=== PATIENT | female | born 1930 | race Caucasian/White ===

== ENCOUNTER 2017-05-14 21:07 | Inpatient (IN) | payer MEDICARE ==
[~2017-05-14] VITALS: Ht 165.1 cm; Wt 54.4 kg
--- NOTE | 2017-05-14 22:28 | NUR ---
THE ONLY MED THAT PT REMEMBERS IS XANAX
[2017-05-14] MEDS ORDERED: IV NORMAL SALINE 1000 ML BAG IV ONE (23:45)
[2017-05-15 00:28] LABS: BASOPHILS % (AUTO) 0.1 % (0.0-2.0); HEMATOCRIT 40.8 % (31.2-41.9); HEMOGLOBIN 13.7 g/dL (10.9-14.3); LYMPHOCYTES # (AUTO) 12.3 K/uL (20.0-40.0); MEAN CORPUSCULAR HEMOGLOBIN 29.7 uug (24.7-32.8); MEAN CORPUSCULAR HGB CONC 34 g/dL (32.3-35.6); MEAN CORPUSCULAR VOLUME 88.5 fL (75.5-95.3); MONOCYTES # (AUTO) 1.3 K/uL (2.0-10.0); MONOCYTES % (AUTO) 2.8 % (0.0-11.0); NEUTROPHILS # (AUTO) 31.9 K/uL (1.8-8.9); NEUTROPHILS % (AUTO) 70.1 % (38.5-71.5); PLATELET COUNT (AUTO) 243 K/uL (179-408); RED BLOOD CELL COUNT(AUTO) 4.61 MIL/uL (3.63-4.92)
[2017-05-15 00:31] LABS: WHITE BLOOD COUNT (AUTO) 45.5 K/uL (3.8-11.8)
[2017-05-15] MEDS ORDERED: VANCOMYCIN IV 1,000 MG in IV DEXTROSE 5% 250 ML IV ONE (00:45)
[2017-05-15] MEDS ORDERED: LEVOFLOXACIN 750 MG/D5W 150 ML PIGGYBACK IV ONE (00:45)
[2017-05-15] MEDS ORDERED: IV NORMAL SALINE 1000 ML BAG IV ONE (00:45)
[2017-05-15 00:48] LABS: CARBON DIOXIDE 24 mmol/L (21-32); CHLORIDE 98 mmol/L (98-107); CREATININE 1.8 mg/dL (0.6-1.3); GLUCOSE 120 mg/dL (74-106); POTASSIUM 4.6 mmol/L (3.5-5.1); UREA NITROGEN, BLOOD 51 mg/dL (7-18)
[2017-05-15 00:54] LABS: ALANINE AMINOTRANSFERASE 18 U/L (14-59); ALKALINE PHOSPHATASE 50 U/L (50-136); ASPARTATE AMINOTRANSFERASE 15 U/L (15-37); BILIRUBIN,DIRECT 0.2 mg/dL (0.0-0.2); BILIRUBIN,TOTAL 0.6 mg/dL (0.2-1.0); LIPASE 140 U/L (73-393); TOTAL PROTEIN, SERUM 7.6 g/dL (6.4-8.2)
[2017-05-15 01:01] LABS: BAND % (MANUAL) 4 % (0-10); LYMPHOCYTES % (MANUAL) 21 % (20-40); MONOCYTES % (MANUAL) 4 % (2-10); NEUTROPHILS % (MANUAL) 71 % (42-75)
[2017-05-15] MEDS ORDERED: LEVOFLOXACIN 750MG/D5W 150 ML IV ONE (01:04)
[2017-05-15] MEDS ORDERED: VANCOMYCIN IV 200 ML ONE (03:57)
[2017-05-15 04:24] LABS: *BILIRUBIN,URIN NEGATIVE (NEGATIVE); *BLOOD, URINE 2+ (NEGATIVE); *COLOR,URINE YELLOW (YELLOW); *KETONES,URINE NEGATIVE (NEGATIVE); *PROTEIN,URINE 2+ (NEGATIVE); *UROBILINOGEN,URINE 0.2 E.U./dl (NORMAL); LEUKOCYTE ESTERASE ,URINE 2+ (NEGATIVE); NITRITE, URINE NEGATIVE (NEGATIVE); UGLUCOSE NEGATIVE (NEGATIVE)
[2017-05-15 04:50] LABS: *CLARITY,URINE HAZY (CLEAR)
[2017-05-15 04:56] LABS: BACTERIA,URINE MANY /HPF (NONE SEEN); RBC,URINE 20-50 /HPF (0-3); SQUAMOUS EPITHELIAL CELL,UR MODERATE /HPF (NONE SEEN); WBC,URINE 20-50 /HPF (0-3)
[2017-05-15] MEDS ORDERED: ONDANSETRON IV *ER 4 MG/2 ML VIAL IV ONE (06:45)
--- NOTE | 2017-05-15 07:09 | NUR ---
Mitering Machine Operator assumes care. Patient is asking for phone assistance & pending telemetry bed at this time.
[2017-05-15] MEDS ORDERED: ONDANSETRON 4 MG/2 ML VIAL ONE (07:29)
--- NOTE | 2017-05-15 07:29 | NUR ---
Hands off report received from BERNY Trivedi. Patient is awake, alert, respiration :easy. COMFORT & SAFETY MEASURES MAINTAINED. Patient was assisted to telephone calls 5x since initial contact,
--- NOTE | 2017-05-15 08:26 | NUR ---
q 30 min nurse checks or even more frequent nurse visits were observed. Patient wanted anti-anxiety medicine, [facility] hospitalist was paged. Dr Cartagena notified.
[2017-05-15] MEDS ORDERED: LORAZEPAM 0.5 MG TABLET PO ONE (08:45)
[2017-05-15] MEDS ORDERED: LORAZEPAM 0.5 MG TABLET ONE (08:49)
--- NOTE | 2017-05-15 09:02 | NUR ---
Patient's son is at bedside.
[2017-05-15] MEDS ORDERED: POTA-88 PO (09:16)
[2017-05-15] MEDS ORDERED: SERT100T12 PO (09:16)
[2017-05-15] MEDS ORDERED: CALC-811 PO (09:16)
[2017-05-15] MEDS ORDERED: FURO40TA5 PO (09:20)
[2017-05-15] MEDS ORDERED: MULT1TAB73 PO (09:20)
[2017-05-15] MEDS ORDERED: FERR-58 PO (09:20)
[2017-05-15] MEDS ORDERED: ASPI81TA31 PO (09:22)
[2017-05-15] MEDS ORDERED: DOCU100C36 PO (09:22)
[2017-05-15] MEDS ORDERED: AMLO5TAB2 PO (09:22)
[2017-05-15] MEDS ORDERED: CARB1TAB21 PO (09:24)
[2017-05-15] MEDS ORDERED: HYDR-4075 PO (09:24)
[2017-05-15] MEDS ORDERED: TAMS0.4C34 PO (09:24)
[2017-05-15] MEDS ORDERED: LEVO500T2 PO (09:28)
[2017-05-15] MEDS ORDERED: IPRA42SP IH (09:28)
[2017-05-15] MEDS ORDERED: BETH10TA PO (09:28)
[2017-05-15] MEDS ORDERED: ALPR0.255 PO (09:32)
[2017-05-15] MEDS ORDERED: NYST15CR TOP (09:32)
[2017-05-15] MEDS ORDERED: TRAM50TA2 PO (09:32)
--- NOTE | 2017-05-15 09:38 | NUR ---
Patient is now sleeping comfortably on gurney with eyes closed, calm & beathing easily.
--- NOTE | 2017-05-15 10:30 | NUR ---
HAND CANDY DIPPER is here our ER dept & "OK to send pt to 2nd floor." per HAND CANDY DIPPER.
--- NOTE | 2017-05-15 11:17 | NUR ---
recieved patient from RE , oriented to room, made comfortable. verbalized nausea, no emesis. will follow up with orders. Addendum: 05/15/17 at 1128 by GARTH NIEVES RN not RE but ER.
[2017-05-15 11:20] VITALS: BP 109/60
--- NOTE | 2017-05-15 12:00 | NUR ---
multiple decu see nursing assessment, pictures taken, placed in md progress notes
[2017-05-15] MEDS ORDERED: MEROPENEM 1 G in IV NORMAL SALINE 100 ML IV SCH (14:00)
[2017-05-15] MEDS: ALPRAZOLAM 0.25 MG TABLET PO SCH ×2 (14:40→21:05)
--- NOTE | 2017-05-15 15:00 | NUR ---
prn agitation , able to calm down, monitored for safety and fall risk
[2017-05-15 15:30] VITALS: BP 110/60
[2017-05-15] MEDS ORDERED: POTASSIUM CHLORIDE 20 MEQ TAB.PRT.SR PO SCH (16:00)
[2017-05-15] MEDS: IV NS 1000 ML 1,000 ML IV PRN (16:28)
[2017-05-15] MEDS: MEROPENEM 500 MG in IV NORMAL SALINE 50 ML IV SCH (16:29)
[2017-05-15] MEDS: hydrALAZINE HCL 10 MG TABLET PO SCH (17:30)
[2017-05-15] MEDS: TRAMADOL HCL 50 MG TABLET PO SCH (17:31)
[2017-05-15] MEDS: CARBIDOPA/LEVODOPA 25-100MG TABLET PO SCH (17:31)
[2017-05-15] MEDS ORDERED: TRAMADOL HCL 50 MG TABLET PO SCH (18:00)
--- NOTE | 2017-05-15 18:38 | NUR ---
removed left knee brace for skin protection and safety per protocol
[2017-05-15] MEDS: NYSTATIN CREAM 30 GM TUBE TOP SCH (19:00)
--- NOTE | 2017-05-15 19:00 | NUR ---
on bed, resting ., getting better cooperative after xanax use. good preicare provided.
[2017-05-15 20:54] VITALS: BP 105/61
[2017-05-16] MEDS: TRAMADOL HCL 50 MG TABLET PO SCH ×5 (00:35→23:12)
[2017-05-16 00:43] VITALS: BP 118/66
[2017-05-16] MEDS: MEROPENEM 500 MG in IV NORMAL SALINE 50 ML IV SCH ×2 (03:31→16:52)
[2017-05-16 05:46] VITALS: BP 121/60
[2017-05-16] MEDS: ALPRAZOLAM 0.25 MG TABLET PO SCH ×3 (06:47→21:02)
[2017-05-16 06:48] LABS: BASOPHILS % (AUTO) 0.1 % (0.0-2.0); EOSINOPHILS # (AUTO) 0.2 K/uL (0.0-0.7); EOSINOPHILS % (AUTO) 0.9 % (0.0-7.0); HEMATOCRIT 36.6 % (31.2-41.9); HEMOGLOBIN 11.8 g/dL (10.9-14.3); LYMPHOCYTES # (AUTO) 9.4 K/uL (20.0-40.0); MEAN CORPUSCULAR HEMOGLOBIN 28.7 uug (24.7-32.8); MEAN CORPUSCULAR HGB CONC 32 g/dL (32.3-35.6); MEAN CORPUSCULAR VOLUME 89.4 fL (75.5-95.3); MONOCYTES # (AUTO) 1.1 K/uL (2.0-10.0); MONOCYTES % (AUTO) 4.1 % (0.0-11.0); NEUTROPHILS # (AUTO) 15.4 K/uL (1.8-8.9); NEUTROPHILS % (AUTO) 58.9 % (38.5-71.5); PLATELET COUNT (AUTO) 206 K/uL (179-408); WHITE BLOOD COUNT (AUTO) 26.2 K/uL (3.8-11.8)
[2017-05-16 07:17] LABS: ALANINE AMINOTRANSFERASE 11 U/L (14-59); ALKALINE PHOSPHATASE 38 U/L (50-136); ASPARTATE AMINOTRANSFERASE 19 U/L (15-37); BILIRUBIN,TOTAL 0.5 mg/dL (0.2-1.0); CARBON DIOXIDE 24 mmol/L (21-32); CHLORIDE 105 mmol/L (98-107); CREATINE KINASE, TOTAL 52 U/L (26-192); CREATININE 1.3 mg/dL (0.6-1.3); GLUCOSE 75 mg/dL (74-106); MAGNESIUM 2.5 mg/dL (1.8-2.4); PHOSPHOROUS 3.1 mg/dL (2.5-4.9); POTASSIUM 3.6 mmol/L (3.5-5.1); TOTAL PROTEIN, SERUM 6.1 g/dL (6.4-8.2); UREA NITROGEN, BLOOD 35 mg/dL (7-18)
--- NOTE | 2017-05-16 07:30 | NUR ---
on bed, sleeping comfortably. no distress noted Addendum: 05/16/17 at 1837 by GARTH NIEVES RN left leg brace in place. Addendum: 05/16/17 at 1838 by GARTH NIEVES RN removed brace prn for skin care, protection
[2017-05-16] MEDS: CALCIUM CARB/VITAMIN D 500MG-200UNITS TABLET PO SCH (09:14)
[2017-05-16] MEDS: DOCUSATE SODIUM 100 MG CAPSULE PO SCH (09:14)
[2017-05-16] MEDS: CARBIDOPA/LEVODOPA 25-100MG TABLET PO SCH ×3 (09:14→17:32)
[2017-05-16] MEDS: MULTIVITAMINS,THERAPEUTIC TABLET PO SCH (09:15)
[2017-05-16] MEDS: POTASSIUM CHLORIDE 20 MEQ TAB.PRT.SR PO SCH (09:15)
[2017-05-16] MEDS: FUROSEMIDE 40 MG TABLET PO SCH (09:15)
[2017-05-16] MEDS: TAMSULOSIN HCL 0.4 MG CAP.SR.24H PO SCH (09:16)
[2017-05-16] MEDS: BETHANECHOL CHLORIDE 10 MG TABLET PO SCH (09:16)
[2017-05-16] MEDS: AMLODIPINE 5 MG TABLET PO SCH (09:16)
[2017-05-16] MEDS: hydrALAZINE HCL 10 MG TABLET PO SCH ×2 (09:16→17:00)
[2017-05-16] MEDS: SERTRALINE HCL 100 MG TABLET PO SCH (09:16)
[2017-05-16] MEDS: ASPIRIN 81 MG TAB.CHEW PO SCH (09:17)
[2017-05-16 11:46] VITALS: BP 130/60
[2017-05-16] MEDS: FERROUS SULFATE 325 MG TABEC PO SCH (12:00)
--- NOTE | 2017-05-16 12:00 | NUR ---
resting well. denies distress
[2017-05-16] MEDS: NYSTATIN CREAM 30 GM TUBE TOP SCH ×3 (13:54→17:33)
--- NOTE | 2017-05-16 14:00 | NUR ---
oob th chair, tolerated fair. back to bed in 30 minutes.
[2017-05-16] MEDS: IV NS 1000 ML 1,000 ML IV PRN (15:23)
[2017-05-16] MEDS ORDERED: ENOXAPARIN SODIUM 40 MG/0.4 ML DISP.SYRIN SQ SCH (15:45)
[2017-05-16 15:49] VITALS: BP 103/58
[2017-05-16] MEDS: IPRATROPIUM BROMIDE NASAL 15 ML BOTTLE 42 MCG/SPRAY NS SCH (18:19)
--- NOTE | 2017-05-16 18:32 | NUR ---
less anxious , cooperative, cont prn forgetfulness. eating more today than yesterday, taking fluids fair, encouraged
[2017-05-16 20:00] VITALS: BP 112/65
[2017-05-16 20:42] VITALS: BP 112/65
[2017-05-16] MEDS: ENOXAPARIN SODIUM 30 MG/0.3 ML DISP.SYRIN SUBCUT SCH (21:03)
[2017-05-17 00:17] VITALS: BP 108/52
[2017-05-17 04:00] VITALS: BP 115/62
[2017-05-17 05:00] VITALS: BP 115/62
[2017-05-17] MEDS: MEROPENEM 500 MG in IV NORMAL SALINE 50 ML IV SCH ×2 (05:08→16:03)
[2017-05-17] MEDS: IV NS 1000 ML 1,000 ML IV PRN (05:09)
--- NOTE | 2017-05-17 05:12 | NUR ---
NURSING CLINICAL NOTE: Pt is requesting to take the morning dose of xanax and tramadol with breakfast.
[2017-05-17 06:52] LABS: CARBON DIOXIDE 24 mmol/L (21-32); CHLORIDE 109 mmol/L (98-107); CREATININE 1.2 mg/dL (0.6-1.3); GLUCOSE 77 mg/dL (74-106); MAGNESIUM 2.1 mg/dL (1.8-2.4); PHOSPHOROUS 2.8 mg/dL (2.5-4.9); POTASSIUM 3.5 mmol/L (3.5-5.1); UREA NITROGEN, BLOOD 29 mg/dL (7-18)
[2017-05-17 07:06] LABS: BASOPHILS % (AUTO) 0.1 % (0.0-2.0); EOSINOPHILS # (AUTO) 0.3 K/uL (0.0-0.7); EOSINOPHILS % (AUTO) 1.5 % (0.0-7.0); HEMATOCRIT 35.7 % (31.2-41.9); HEMOGLOBIN 11.6 g/dL (10.9-14.3); LYMPHOCYTES % (AUTO) 45.8 % (20.5-51.5); MEAN CORPUSCULAR HEMOGLOBIN 29.1 uug (24.7-32.8); MEAN CORPUSCULAR HGB CONC 33 g/dL (32.3-35.6); MEAN CORPUSCULAR VOLUME 89.6 fL (75.5-95.3); MONOCYTES # (AUTO) 0.8 K/uL (2.0-10.0); MONOCYTES % (AUTO) 4.1 % (0.0-11.0); NEUTROPHILS # (AUTO) 9.6 K/uL (1.8-8.9); NEUTROPHILS % (AUTO) 48.5 % (38.5-71.5); PLATELET COUNT (AUTO) 193 K/uL (179-408); RED BLOOD CELL COUNT(AUTO) 3.98 MIL/uL (3.63-4.92); WHITE BLOOD COUNT (AUTO) 19.7 K/uL (3.8-11.8)
[2017-05-17] MEDS: ASPIRIN 81 MG TAB.CHEW PO SCH (08:15)
[2017-05-17] MEDS: DOCUSATE SODIUM 100 MG CAPSULE PO SCH (08:15)
[2017-05-17] MEDS: TAMSULOSIN HCL 0.4 MG CAP.SR.24H PO SCH (08:15)
[2017-05-17] MEDS: CARBIDOPA/LEVODOPA 25-100MG TABLET PO SCH ×3 (08:16→16:03)
[2017-05-17] MEDS: CALCIUM CARB/VITAMIN D 500MG-200UNITS TABLET PO SCH (08:17)
[2017-05-17] MEDS: ALPRAZOLAM 0.25 MG TABLET PO SCH ×3 (08:17→21:42)
[2017-05-17] MEDS: FUROSEMIDE 40 MG TABLET PO SCH (08:17)
[2017-05-17] MEDS: TRAMADOL HCL 50 MG TABLET PO SCH ×4 (08:17→23:02)
[2017-05-17] MEDS: POTASSIUM CHLORIDE 20 MEQ TAB.PRT.SR PO SCH (08:19)
[2017-05-17] MEDS: SERTRALINE HCL 100 MG TABLET PO SCH (08:19)
[2017-05-17] MEDS: MULTIVITAMINS,THERAPEUTIC TABLET PO SCH (08:19)
[2017-05-17] MEDS: BETHANECHOL CHLORIDE 10 MG TABLET PO SCH (08:24)
[2017-05-17] MEDS: hydrALAZINE HCL 10 MG TABLET PO SCH ×2 (08:25→16:02)
[2017-05-17] MEDS: AMLODIPINE 5 MG TABLET PO SCH (08:25)
[2017-05-17] MEDS: NYSTATIN CREAM 30 GM TUBE TOP SCH ×3 (08:26→16:05)
[2017-05-17] MEDS: IPRATROPIUM BROMIDE NASAL 15 ML BOTTLE 42 MCG/SPRAY NS SCH (09:43)
[2017-05-17 11:18] VITALS: BP 105/59
[2017-05-17] MEDS: FERROUS SULFATE 325 MG TABEC PO SCH (11:52)
[2017-05-17 15:05] VITALS: BP 111/63
--- NOTE | 2017-05-17 18:48 | NUR ---
PT OBSERVED RESTING IN ROOM. THROUGH OUT THE DAY PT HAS BEEN ANXIOUS /. PT WAS TAUGHT BREATHING TECHNIQUES, AND DISTRACTION. HER ANXIETY 07/17 TEACHING WAS EFFECTIVE. AOX2 NEEDS REORIENTATION AND REMINDING.
[2017-05-17 20:00] VITALS: BP 120/60
--- NOTE | 2017-05-17 20:00 | NUR ---
RECEIVED PT AWAKE IN BED, SHE'S ALERT WITH CONFUSION AND EASILY GETS ANXIOUS. SHE DENIES PAIN OR DISCOMFORT AT THIS TIME. SHE'S ON TELE WITH A-FIB RHYTHM AT 63. ALL SAFETY MEASURES IN PLACE, CALL LIGHT WITHIN PT'S REACH. WILL CONTINUE TO MONITOR PT
[2017-05-17] MEDS: ENOXAPARIN SODIUM 30 MG/0.3 ML DISP.SYRIN SUBCUT SCH (21:41)
--- NOTE | 2017-05-18 | NUR ---
PT IS ASLEEP WITH NO S/S OF PAIN OR DISTRESS, NO SIGNIFICANT CHANGES IN STATUS AT PRESENT. WILL CONTINUE TO MONITOR PT
[2017-05-18 00:29] VITALS: BP 100/60
[2017-05-18] MEDS: MEROPENEM 500 MG in IV NORMAL SALINE 50 ML IV SCH ×2 (03:48→17:53)
[2017-05-18 05:24] VITALS: BP 129/67
[2017-05-18] MEDS: TRAMADOL HCL 50 MG TABLET PO SCH ×4 (05:46→22:48)
[2017-05-18] MEDS: ALPRAZOLAM 0.25 MG TABLET PO SCH ×3 (05:46→18:11)
[2017-05-18] MEDS: IV NS 1000 ML 1,000 ML IV PRN ×2 (05:49→23:02)
--- NOTE | 2017-05-18 06:50 | NUR ---
PT CONTINUES TO SLEEP ON AND OFF WITH NO S/S OF DISTRESS OR DISCOMFORT. NO FURTHER CHANGES, ALL NEEDS MET AND ANTICIPATED
[2017-05-18] MEDS: IPRATROPIUM BROMIDE NASAL 15 ML BOTTLE 42 MCG/SPRAY NS SCH (09:56)
[2017-05-18] MEDS: NYSTATIN CREAM 30 GM TUBE TOP SCH ×3 (09:56→18:07)
[2017-05-18] MEDS: ASPIRIN 81 MG TAB.CHEW PO SCH (09:56)
[2017-05-18] MEDS: TAMSULOSIN HCL 0.4 MG CAP.SR.24H PO SCH (09:56)
[2017-05-18] MEDS: hydrALAZINE HCL 10 MG TABLET PO SCH ×2 (09:56→18:10)
[2017-05-18] MEDS: CARBIDOPA/LEVODOPA 25-100MG TABLET PO SCH ×3 (09:57→18:45)
[2017-05-18] MEDS: CALCIUM CARB/VITAMIN D 500MG-200UNITS TABLET PO SCH (09:57)
[2017-05-18] MEDS: AMLODIPINE 5 MG TABLET PO SCH (09:57)
[2017-05-18] MEDS: POTASSIUM CHLORIDE 20 MEQ TAB.PRT.SR PO SCH (09:57)
[2017-05-18] MEDS: MULTIVITAMINS,THERAPEUTIC TABLET PO SCH (09:57)
[2017-05-18] MEDS: FUROSEMIDE 40 MG TABLET PO SCH (09:57)
[2017-05-18] MEDS: BETHANECHOL CHLORIDE 10 MG TABLET PO SCH (10:17)
[2017-05-18] MEDS: SERTRALINE HCL 100 MG TABLET PO SCH (10:50)
[2017-05-18] MEDS: DOCUSATE SODIUM 100 MG CAPSULE PO SCH (10:51)
[2017-05-18 11:13] VITALS: BP 108/61
[2017-05-18] MEDS: FERROUS SULFATE 325 MG TABEC PO SCH (12:45)
[2017-05-18 15:27] VITALS: BP 107/56
--- NOTE | 2017-05-18 19:25 | NUR ---
PT RECEIVED IN BED, AWAKE. A/OX2. ABLE TO MAKE NEEDS KNOWN. V/S STABLE. IN NO ACUTE DISTRESS. NO C/O PAIN AT THIS TIME. IVF INFUSING. ON RA TOLERATING WELL.AFEBRILE. OFFLOADING SACRAL AREA. SAFETY MEASURES IMPLEMENTED. BED ALARM SET. CALL LIGHT WITHIN REACH.
[2017-05-18 20:42] VITALS: BP_SYST 102; BP_SYST 111; BP_DIAS 53; BP_DIAS 61
[2017-05-18] MEDS: ENOXAPARIN SODIUM 30 MG/0.3 ML DISP.SYRIN SUBCUT SCH ×2 (21:00→22:47)
[2017-05-18 22:15] VITALS: BP 172/79
--- NOTE | 2017-05-18 22:45 | NUR ---
PT C/O SACRAL PAIN 02/16. ADMINISTERED ULTRAM ORDERED. PT REFUSED LOVENOX. PT STATES ALREADY RECEIVING LOVENOX BEFORE DINNER AND DOES NOT WANT IT AT THIS TIME.
[2017-05-19] MEDS: MEROPENEM 500 MG in IV NORMAL SALINE 50 ML IV SCH (04:35)
[2017-05-19 04:43] VITALS: BP 136/59
[2017-05-19] MEDS: ALPRAZOLAM 0.25 MG TABLET PO SCH ×2 (05:06→13:10)
[2017-05-19] MEDS: TRAMADOL HCL 50 MG TABLET PO SCH ×2 (05:06→12:10)
--- NOTE | 2017-05-19 07:14 | NUR ---
END OF SHIFT NOTES. PT SLEPT INTERMITTENTLY THROUGHOUT SHIFT. IN STABLE CONDITION. PAIN MANAGED. IV ABX INFUSED AND IVF INFUSING. OFFLOADING PROVIDED TO [facility]. ALL NEEDS ATTENDED. SAFETY MAINTAINED. CALL LIGHT WITHIN REACH.
[2017-05-19] MEDS: TAMSULOSIN HCL 0.4 MG CAP.SR.24H PO SCH (08:55)
[2017-05-19] MEDS: DOCUSATE SODIUM 100 MG CAPSULE PO SCH (08:55)
[2017-05-19] MEDS: SERTRALINE HCL 100 MG TABLET PO SCH (08:55)
[2017-05-19] MEDS: CALCIUM CARB/VITAMIN D 500MG-200UNITS TABLET PO SCH (08:55)
[2017-05-19] MEDS: FUROSEMIDE 40 MG TABLET PO SCH (08:55)
[2017-05-19] MEDS: ASPIRIN 81 MG TAB.CHEW PO SCH (08:55)
[2017-05-19] MEDS: POTASSIUM CHLORIDE 20 MEQ TAB.PRT.SR PO SCH (08:56)
[2017-05-19] MEDS: MULTIVITAMINS,THERAPEUTIC TABLET PO SCH (08:56)
[2017-05-19] MEDS: CARBIDOPA/LEVODOPA 25-100MG TABLET PO SCH ×2 (08:56→12:10)
[2017-05-19] MEDS: IPRATROPIUM BROMIDE NASAL 15 ML BOTTLE 42 MCG/SPRAY NS SCH (08:57)
[2017-05-19] MEDS: BETHANECHOL CHLORIDE 10 MG TABLET PO SCH (08:57)
[2017-05-19] MEDS: NYSTATIN CREAM 30 GM TUBE TOP SCH ×2 (08:57→12:11)
[2017-05-19] MEDS: AMLODIPINE 5 MG TABLET PO SCH (08:58)
[2017-05-19] MEDS: hydrALAZINE HCL 10 MG TABLET PO SCH (08:59)
[2017-05-19 09:05] LABS: BASOPHILS % (AUTO) 0.1 % (0.0-2.0); EOSINOPHILS # (AUTO) 0.3 K/uL (0.0-0.7); EOSINOPHILS % (AUTO) 1.3 % (0.0-7.0); HEMATOCRIT 35.1 % (31.2-41.9); HEMOGLOBIN 11.6 g/dL (10.9-14.3); LYMPHOCYTES # (AUTO) 7.4 K/uL (20.0-40.0); LYMPHOCYTES % (AUTO) 36.1 % (20.5-51.5); MEAN CORPUSCULAR HEMOGLOBIN 29.3 uug (24.7-32.8); MEAN CORPUSCULAR HGB CONC 33 g/dL (32.3-35.6); MEAN CORPUSCULAR VOLUME 88.8 fL (75.5-95.3); MONOCYTES # (AUTO) 0.8 K/uL (2.0-10.0); MONOCYTES % (AUTO) 3.7 % (0.0-11.0); NEUTROPHILS # (AUTO) 12.1 K/uL (1.8-8.9); NEUTROPHILS % (AUTO) 58.8 % (38.5-71.5); PLATELET COUNT (AUTO) 186 K/uL (179-408); RED BLOOD CELL COUNT(AUTO) 3.95 MIL/uL (3.63-4.92); WHITE BLOOD COUNT (AUTO) 20.6 K/uL (3.8-11.8)
--- NOTE | 2017-05-19 09:37 | NUR ---
PHYSICAL THERAPIST HERE TO SEE PATIENT SHE HAS AN IMMOBILIZER ON HER LEFT LEG AND SHE STATED TO JEFF THAT SHE HAS A HAIR LINE FRACTURE OF THIS LEG SO DR MUNOZ NOTIFIED AND HE STATED TO DO AN XRAY TO DETERMINE WHAT KIND OF FRACTURE BEFORE PHYSICAL THERAPY PHYSICAL THERAPY NOTIFIED.
[2017-05-19 09:58] LABS: ALANINE AMINOTRANSFERASE 13 U/L (14-59); ALKALINE PHOSPHATASE 34 U/L (50-136); ASPARTATE AMINOTRANSFERASE 14 U/L (15-37); BILIRUBIN,TOTAL 0.4 mg/dL (0.2-1.0); CARBON DIOXIDE 26 mmol/L (21-32); CHLORIDE 107 mmol/L (98-107); GLUCOSE 107 mg/dL (74-106); MAGNESIUM 1.6 mg/dL (1.8-2.4); PHOSPHOROUS 2.1 mg/dL (2.5-4.9); POTASSIUM 3.2 mmol/L (3.5-5.1); TOTAL PROTEIN, SERUM 5.8 g/dL (6.4-8.2); UREA NITROGEN, BLOOD 16 mg/dL (7-18)
[2017-05-19 11:25] VITALS: BP 119/64
[2017-05-19] MEDS ORDERED: MAGNESIUM OXIDE 400 MG TABLET PO ONE (11:30)
[2017-05-19] MEDS: FERROUS SULFATE 325 MG TABEC PO SCH (12:09)
[2017-05-19] MEDS: POTASSIUM PHOSPHATE MM 7.5 MMOL in IV DEXTROSE 5% 100 ML IV SCH ×2 (12:22→14:30)
--- NOTE | 2017-05-19 12:40 | NUR ---
MGNESSIUM LEVEL IS 1.6 POTASSIUM 3.[address] MUNOZ WITH NEW ORDERS AND NOTED.
[2017-05-19] MEDS ORDERED: TRAM50TA2 PO (14:11)
[2017-05-19] MEDS ORDERED: ALPR0.255 PO (14:11)
[2017-05-19] MEDS ORDERED: RXGEN IV (14:11)
[2017-05-19] MEDS ORDERED: TAMS-3 PO (14:11)
[2017-05-19] MEDS ORDERED: FURO-152 PO (14:11)
[2017-05-19] MEDS ORDERED: CRAN450T9 PO (14:12)
[2017-05-19] MEDS ORDERED: RIVA10TA PO (14:25)
--- NOTE | 2017-05-19 14:27 | NUR ---
NEW ORDERS NOTED TO DISCHARGE PATIENT TO [facility] TODAY AWAITING FOR DR MUNOZ TO COMPLETE THE DISCHARGE PROCESS PATIENT AWARE.
[2017-05-19 15:35] VITALS: BP 117/69
--- NOTE | 2017-05-19 15:35 | NUR ---
DR MALONEY STATED TO ONLY GIVE 7.5 MMOL OF KPHOS THEN DISCHARGE PATIENT.
--- NOTE | 2017-05-19 15:55 | NUR ---
JOSEFINA SLATER SPOKE WITH ELISE AND REPORT GIVEN FOR CONTINUING CARE AND TO START GENTAMICIN FOR [address] MUNOZ AND SHE EXPRESSED UNDERSTANDING.
--- NOTE | 2017-05-19 16:54 | NUR ---
PATIENT DISCHARGED PICKED UP BY [facility] IN SATISFACTORY CONDITION WITH DISCHARGE INSTRUCTIONS AND ALL HER PERSONAL BELONGINGS.
[2017-05-21 06:06] LABS: ALPHA-1-GLOBULIN 0.3 g/dL (0.0-0.4); ALPHA-2-GLOBULIN 0.8 g/dL (0.4-1.0); BETA GLOBULIN 0.7 g/dL (0.7-1.3); GLOBULIN, TOTAL 2.9 g/dL (2.2-3.9); M-SPIKE Not Observed g/dL (Not Observed)
== END 2017-05-19 16:55 | DRG 871 ==
LOC: ER 21:08 → TELE 05-15 10:59 → MED 05-18 12:20
PROVIDERS: ADMIT Internal Medicine; ATTEND Nurse Practitioner Acute Care
DX: A41.59 Other Gram-negative sepsis (principal); G93.41 Metabolic encephalopathy; N17.0 Acute kidney failure with tubular necrosis; E43 Unspecified severe protein-calorie malnutrition; G20 Parkinson's disease; D68.9 Coagulation defect, unspecified; F03.90 Unspecified dementia, unspecified severity, without behavioral disturbance, psychotic disturbance, mood disturbance, and anxiety; E86.0 Dehydration; E87.1 Hypo-osmolality and hyponatremia; N39.0 Urinary tract infection, site not specified; I11.9 Hypertensive heart disease without heart failure; R65.20 Severe sepsis without septic shock; Z16.11 Resistance to penicillins; Z16.23 Resistance to quinolones and fluoroquinolones; Z16.29 Resistance to other single specified antibiotic; Z68.20 Body mass index [BMI] 20.0-20.9, adult; D25.9 Leiomyoma of uterus, unspecified; F41.9 Anxiety disorder, unspecified; Z96.641 Presence of right artificial hip joint; N20.0 Calculus of kidney; M47.896 Other spondylosis, lumbar region; K80.20 Calculus of gallbladder without cholecystitis without obstruction; K57.30 Diverticulosis of large intestine without perforation or abscess without bleeding; N60.02 Solitary cyst of left breast; N60.01 Solitary cyst of right breast; M84.362D Stress fracture, left tibia, subsequent encounter for fracture with routine healing; X58.XXXD Exposure to other specified factors, subsequent encounter; R93.3 Abnormal findings on diagnostic imaging of other parts of digestive tract
CPT/HCPCS: 36415; 70030-TC; 71045; 73590; 76770; 82378; 83605; 83690; 83735; 83970; 84100; 84155; 84165; 85025; 85730; 87040; 87077; 87086; 93005; 97110; 97530; A4663; J1650; J1956; J2185; J2405; J3370; J3490; J7030; J7060